=== PATIENT | male | born 1965 | race Caucasian/White ===

== ENCOUNTER 2017-06-14 12:00 | Emergency (ER) | payer BC ==
[~2017-06-14] VITALS: Ht 160 cm; Wt 68.0 kg
[2017-06-14] MEDS ORDERED: NAPROSYN500 MG PO (13:58)
[2017-06-14 14:16] VITALS: BP 138/91
== END 2017-06-14 14:17 | disposition home or self-care (01) ==
LOC: M.ERS 12:00
DX: S46.912A Strain of unspecified muscle, fascia and tendon at shoulder and upper arm level, left arm, initial encounter (principal); Z98.890 Other specified postprocedural states; W18.39XA Other fall on same level, initial encounter; Y93.89 Activity, other specified; Y92.89 Other specified places as the place of occurrence of the external cause; Y99.8 Other external cause status